=== PATIENT | female | born 1980 | race Two or more races ===

== ENCOUNTER 2016-08-12 03:31 | Emergency (ER) | payer OTHER ==
[2016-08-12] MEDS ORDERED: LIDOCAINE 1%-EPI 1:100,000 20 ML VIAL ONE (03:40)
[2016-08-12] MEDS ORDERED: LORAZEPAM 1 MG TABLET ONE (03:48)
[2016-08-12 04:00] VITALS: BP 136/86
[2016-08-12] MEDS ORDERED: LORAZEPAM 1 MG TABLET PO ONE (04:00)
[2016-08-12] MEDS ORDERED: LIDOCAINE 1%-EPI 1:100,000 50 ML VIAL IJ ONE (04:00)
== END 2016-08-12 04:36 | disposition home or self-care (01) ==
LOC: ER 03:37
DX: M79.89 Other specified soft tissue disorders (principal); L02.91 Cutaneous abscess, unspecified; F32.9 Major depressive disorder, single episode, unspecified; F19.10 Other psychoactive substance abuse, uncomplicated
CPT/HCPCS: A4606; A6403; A6407; J3490; Z7610

== ENCOUNTER 2016-09-26 17:00 | Emergency (ER) | payer OTHER ==
[~2016-09-26] VITALS: Ht 154.9 cm; Wt 66.2 kg
[2016-09-26 17:25] VITALS: BP 111/62
[2016-09-26] MEDS ORDERED: CLINDAMYCIN HCL 150 MG CAPSULE PO STA (18:04)
[2016-09-26] MEDS ORDERED: CLINDAMYCIN HCL 150 MG CAPSULE PO ONE (18:10)
[2016-09-26] MEDS ORDERED: LORAZEPAM 1 MG TABLET ONE (18:10)
[2016-09-26] MEDS ORDERED: LORAZEPAM 1 MG TABLET PO ONE (18:30)
[2016-09-26] MEDS ORDERED: LIDOCAINE 1%-EPI 1:100,000 50 ML VIAL IJ ONE (18:30)
== END 2016-09-26 19:42 | disposition home or self-care (01) ==
LOC: ER 17:25
DX: L03.115 Cellulitis of right lower limb (principal); F32.9 Major depressive disorder, single episode, unspecified
CPT/HCPCS: 10060; 99283; A4606; A6402 ×2; A6407; J3490; Z7610